=== PATIENT | male | born 1975 | race Caucasian/White ===

== ENCOUNTER 2019-09-11 07:38 | Day surgery (SDC) | payer BC, OTHER ==
[2019-09-05 10:18] VITALS: BMI 22.6
[~2019-09-11 07:38] MED LIST: LIDOCAINE 1%/EPI 1:100000 (20 ML MULTI DOSE VIAL) INF ONE
[2019-09-11] MEDS ORDERED: GABAPENTIN 300 MG CAPSULE (FP) PO STA (07:47)
[2019-09-11] MEDS ORDERED: oxyCODONE HCL 10 MG SUSTAINED ACTING TABLET PO STA (07:47)
[2019-09-11] MEDS ORDERED: BUPIVACAINE HCL/PF 0.5% (5 MG/ML) 30 ML VIAL IJ ONE (10:19)
[2019-09-11] MEDS ORDERED: MIDAZOLAM HCL 2 MG/2 ML SINGLE DOSE VIAL ONE (10:19)
--- NOTE | 2019-09-11 11:30 | HP ---
History & Physical Update - History History: No Change - Physical Physical: No Change - Assessment Assessment: No Change - Plan Plan: No Change
[2019-09-11] MEDS ORDERED: LIDOCAINE 1%/EPI 1:100000 (20 ML MULTI DOSE VIAL) ONE (11:36)
[2019-09-11] MEDS ORDERED: methylPREDNISolone ACET (DEPO) 40 MG/1 ML VIAL ONE (11:36)
[2019-09-11] MEDS ORDERED: LIDOCAINE 1%/EPI 1:100000 (20 ML MULTI DOSE VIAL) INF ONE (12:29)
[2019-09-11] MEDS ORDERED: methylPREDNISolone ACET (DEPO) 40 MG/1 ML VIAL IM ONE (13:15)
--- NOTE | 2019-09-11 13:49 | OP ---
Operative Note - Note: Operative Date: 09/11/19 Pre-Operative Diagnosis: lumbar stenosis, disc herniation Operation: s/p L5-S1 laminectomy with microdisectomy Surgeon: Reji Harris Lease Broker: Ju Nava Anesthesiologist/HELMET HAT SWEATBAND PUNCHER: Shubham Pacheco Anesthesia: Spinal Estimated Blood Loss (mls): 20 Fluid Volume Replaced (mls): 1,300 Operative Report Dictated: Yes
--- NOTE | 2019-09-11 13:50 | SURG ---
Surgery Injection Molding Machine Operator Note Injection Molding Machine Operator: Ju Nava PA-C Date of Service: 09/11/19 Diagnosis: lumbar stenosis, disc herniation Procedure: s/p L5-S1 laminectomy with microdisectomy I was present for the entirety of the operative procedure. For further detail, please refer to operative report. Visit type - Case Type Case Type: Scheduled - Emergency Emergency Visit: No - New patient This patient is new to me today: Yes Date on this admission: 09/11/19
[2019-09-11] MEDS ORDERED: ONDANSETRON 4 MG/2 ML VIAL IVPUSH PRN (13:51)
[2019-09-11] MEDS ORDERED: oxyCODONE HCL 5 MG TABLET PO PRN (13:51)
[2019-09-11] MEDS ORDERED: LACTATED RINGERS SOLUTION 1,000 ML IV SCH (14:00)
[2019-09-11 15:27] VITALS: TEMP 98.2
--- NOTE | 2019-09-11 16:22 | OP ---
DATE OF OPERATION: 09/11/2019 PREOPERATIVE DIAGNOSIS: Spinal stenosis L5-S1. POSTOPERATIVE DIAGNOSIS: Spinal stenosis L5-S1. PROCEDURE PERFORMED: Laminectomy L5-S1. SURGEON: Reji Harris MD OPERATIONS INSPECTOR: EDELMIRA Ochoa ESTIMATED BLOOD LOSS: 50 mL. INTRAVENOUS FLUIDS: Per anesthesia. ANESTHESIA: Spinal/TLIP. COMPLICATIONS: There were none. DISPOSITION: Patient brought to the PACU in stable condition. INDICATIONS FOR SURGERY: Patient is a 44-year-old gentleman who has been suffering from pain from his back down his right leg. X-rays and MRI were completed, which noted that he had spinal stenosis at L5-S1 secondary to a herniated disk. He had gone through an exhaustive course of treatment for this, which included medications, physical therapy as well as injections. Unfortunately, his pain continued to persist despite all this. At this point, risks, benefits, and alternatives were discussed, and the patient consented to surgery. DESCRIPTION OF PROCEDURE: Patient was brought to the operating room by the anesthesia staff. After appropriate patient identification was performed, spinal anesthesia was given, and patient was able to position himself prone onto the OR table with all areas and bony prominences well padded at this time. Two needles were placed into his back to dinesh off the L5-S1 level. X-ray was taken to confirm this was correct. Needle was removed, and 10 mL of lidocaine with epinephrine was injected into his back. At this time, his back was prepped and draped in a sterile manner. At this point, a time-out was completed. An incision was made from the top of L5 down to the bottom of S1. Dissection was carried down to the fascia. Fascia was split open at this time, and appropriate retractor was then placed in. A spinal needle was placed onto the L5 lamina to dinesh off the L5-S1 level. X-ray was taken to confirm this was correct. Needle was removed, and the interspinous ligament at L5-S1 was removed. Portions of the L5-S1 lamina were removed. Portions of the flavum were removed. The nerve root was mobilized medially. Disk herniation was noted. It was removed at this time. Portions of the inferior superior facet were removed to complete the foraminotomy. By the time of the procedure, the nerve root appears to be well decompressed. All bleeding was well controlled at this time. Steroid was placed over the nerve root. FloSeal was placed over that. The fascia was closed with a No. 1 Vicryl suture. Subcutaneous tissue was closed with a 2-0 Vicryl suture. Skin was closed with a 3-0 Monocryl suture. Dermabond was applied. Steri-Strips were applied. A sterile dressing was applied. Patient was placed supine on the OR bed, brought to the PACU in stable condition. Deepak LANDEROS/[id number]
[2019-09-11 16:56] VITALS: BP 121/66; PULSE 67
--- NOTE | 2019-09-13 15:11 | PATH ---
Surgical Pathology Report Patient Name: GAY COOPER [facility]. Rec. #: [id number] /Age/Gender: 1975 (Age: 44) / M Account: [id number] Location: [facility] Taken: 09/11/2019 Received: 09/11/2019 Reported: 09/13/2019 Physicians: Reji Harris M.D. Specimen(s) Received DISC L5-S1 Clinical History Spinal stenosis Final Diagnosis L5-S1 DISC, LAMINECTOMY: CARTILAGE WITH DEGENERATIVE CHANGES, BONE AND FIBROCOLLAGENOUS TISSUE. Electronically Signed Janis Whitney M.D. Gross Description Received in formalin labeled "L5-S1 disc," is a 2.2 x 1.8 x 0.3 cm aggregate of abraham fragments of fibrocartilaginous tissue. A plastic products sales representative portion is submitted in one cassette. 09/12/2019 saudi09/12/2019
== END 2019-09-11 16:40 | disposition home or self-care (01) ==
LOC: FASU 07:38
PROVIDERS: ATTEND Orthopaedic Surgery Orthopaedic Surgery of the Spine
PROC: 01NB0ZZ Release Lumbar Nerve, Open Approach (ICD-10-PCS; principal; 2019-09-11 12:43)
DX: M48.07 Spinal stenosis, lumbosacral region (principal); M51.27 Other intervertebral disc displacement, lumbosacral region
CPT/HCPCS: 72100-TC-FY; 88304-TC; 94760